=== PATIENT | female | born 1980 | race Caucasian/White ===

== ENCOUNTER 2016-11-16 05:17 | Observation (INO) | payer MEDICAID ==
[2016-11-16] MEDS ORDERED: LR 1,000 ML IV ONE ×2 (05:30→06:42)
[2016-11-16] MEDS ORDERED: PHENAZOPYRIDINE HCL 200 MG TAB PO ONE (05:30)
[2016-11-16] MEDS ORDERED: ceFAZolin 2 GM/DEXTROSE 100 ML IV ONE (05:30)
[2016-11-16] MEDS ORDERED: LIDOCAINE 1% 2 ML INJ ONE (06:18)
[2016-11-16] MEDS ORDERED: LIDOCAINE 1% 5 ML SDV ID PRN (06:42)
[2016-11-16] MEDS ORDERED: fentaNYL 100 MCG/2 ML INJ ONE ×4 (07:04→09:26)
[2016-11-16] MEDS ORDERED: PROPOFOL 200 MG/20 ML VIAL ONE ×2 (07:04)
[2016-11-16] MEDS ORDERED: ROCURONIUM 100 MG/10 ML VIAL ONE (07:08)
[2016-11-16] MEDS ORDERED: LIDOCAINE 2% 100 MG/5 ML SYR ONE (07:08)
[2016-11-16] MEDS ORDERED: MIDAZOLAM 2 MG/2 ML VIAL ONE (07:10)
[2016-11-16] MEDS ORDERED: BUPIVACAINE/EPI 0.5% 30 ML SDV ONE (07:24)
[2016-11-16] MEDS ORDERED: ONDANSETRON 4 MG/2 ML VIAL ONE (08:15)
[2016-11-16] MEDS ORDERED: DEXAMETHASONE 4 MG/ML VIAL ONE (08:15)
[2016-11-16] MEDS ORDERED: SUGAMMADEX SODIUM 200 MG/2 ML VIAL IVP ONE (09:05)
[2016-11-16] MEDS ORDERED: ALPRAZolam 0.25 MG TAB PO PRN ×2 (09:12→12:26)
[2016-11-16] MEDS ORDERED: HYDROCODONE/APAP 5/325 TAB PO PRN (09:13)
[2016-11-16] MEDS ORDERED: ZOLPIDEM TARTRATE 5 MG TAB PO PRN (09:13)
[2016-11-16] MEDS ORDERED: OXYCODONE/APAP 5/325 TAB PO PRN (09:13)
[2016-11-16] MEDS ORDERED: KETOROLAC 30 MG/1 ML SDV IVP ONE (09:13)
[2016-11-16] MEDS ORDERED: ONDANSETRON 4 MG/2 ML VIAL IVP PRN (09:13)
--- NOTE | 2016-11-16 09:20 | POSTOPPROG ---
Post Op Note Date of Operation: 11/16/16 Surgeon: Ulises Rivera Premium Auditor: Lashay Larse Anesthesia: GET(General Endotracheal) Pre-op Diagnosis: Dysmenorrhea, pelvic pain Post-op Diagnosis: Same + endometriosis Procedure: Robotic hyst/LSO, bilat ureterolysis, US lig colpopexy, excise endo, cysto Findings: endo, both ureters function at end of case Inf/Abcess present in the surg proc area at time of surgery?: No EBL: Minimal Complications: None Specimen(s): Uterus, bilat tubes, left ovary, peritoneum with endo
[2016-11-16] MEDS ORDERED: HYDROmorphONE/DILAUDID 1 MG/ML SYR ONE (09:26)
[2016-11-16] MEDS ORDERED: KETOROLAC 15 MG/1 ML SDV ONE (09:26)
[2016-11-16] MEDS ORDERED: LR 1,000 ML IV SCH (09:30)
[2016-11-16] MEDS ORDERED: DIAZEPAM 10 MG/2 ML SYR ONE (10:01)
--- NOTE | 2016-11-16 10:13 | GOP ---
[f rep st] OPERATIVE REPORT DATE OF OPERATION: 11/16/2016 SURGEON: Ulises Rivera MD SENIOR TELECOMMUNICATIONS TECHNICIAN: Lashay Lares CFA ANESTHESIA: General. PREOPERATIVE DIAGNOSIS: 1. Dysmenorrhea. 2. Dyspareunia. 3. Pelvic pain. 4. Uterine prolapse. POSTOPERATIVE DIAGNOSIS: 1. Dysmenorrhea. 2. Dyspareunia. 3. Pelvic pain. 4. Uterine prolapse. 5. Endometriosis. PROCEDURE PERFORMED: 1. Robotic-assisted total laparoscopic hysterectomy, left salpingo-oophorectomy , right salpingectomy. 2. Bilateral ureterolysis. 3. Excision of endometriosis. 4. Bilateral uterosacral ligament colpopexy. 5. Cystoscopy. FINDINGS: SPECIMENS: Uterus, bilateral tubes, left ovary, and peritoneum with endometriosis. ESTIMATED BLOOD LOSS: Scant. DESCRIPTION OF PROCEDURE: The patient was taken to the operating room, where anesthesia was administered and found to be adequate. She was placed in the lithotomy position and prepared and draped in normal sterile fashion. A [employer] uterine manipulator was placed into the endometrial cavity and sutured to the cervix. A 1 cm infraumbilical incision was made with a scalpel. The Veress needle with a CO2 gas lung was advanced into the peritoneal cavity. The abdomen was then insufflated with carbon dioxide gas. The 12 mm trocar, followed by the laparoscope, were then inserted. The upper abdomen was unremarkable. There was no endometriosis seen on either diaphragm, stomach or liver. Two lateral ports were placed on the right and 1 on the left under direct visualization. She then was placed in Trendelenburg position, and the da Za robot docked on the left side. The instruments were brought into the abdominal cavity under direct visualization. She was found to have endometriosis, mostly in both ovarian fossas overlying both ureters. The left round ligament was divided. The anterior leaf of the broad ligament was incised to the bifurcation of left common iliac vessels. A window was created in the medial leaf to skeletonize the infundibulopelvic vessels on the left. They were then cauterized and transected. The anterior leaf of the broad ligament was then incised over the left uterine vessels and across the cervix. The bladder was gently dissected off the cervix and upper vagina. The left uterine vasculature was then cauterized and transected. The right fallopian tube was along the mesosalpinx. The utero- ovarian ligament, followed by the round ligament, were then cauterized and transected. The anterior leaf of the broad ligament was then incised on the right, and the bladder further dissected off. The entire peritoneum in both ovarian fossas was then completely excised. This required a bilateral ureterolysis to safely remove the endometriosis without injuring the ureters. The peritoneum near the pelvic brim was incised. The ureter was gently dissected free. The dissection was carried distally all the way down to the bladder to lateralize the ureter off the peritoneum and overlying endometriosis. Once this was accomplished, the peritoneum endometriosis was completely excised. The exact same procedure was performed on the patient's right side. A circumferential colpotomy incision was then made with the hot mary beth. All specimens were removed through the vagina. The vaginal cuff was closed with a running suture of 0 V-Loc 180. A bilateral uterosacral ligament colpopexy was performed by attaching the lateral aspects of the vaginal cuff to the ipsilateral uterosacral ligaments near their insertion into the coccygeal- sacrospinous ligament complexes. The pelvis was then irrigated with sterile saline and hemostasis was present. The robot was then undocked. The fascia was closed with 0 Vicryl, skin with 4-0 Monocryl and surgical adhesive. Cystoscopy was then performed. Both ureters had vigorous jets of urine. There was no evidence of bladder nor urethral injury seen. No obvious pathology was seen. Anesthesia was reversed. The patient was taken to the PACU awake, in stable condition. COMPLICATIONS: None. DISPOSITION: Patient stable to PACU. /[id number]/MODL MTDD
[2016-11-16] MEDS ORDERED: DIAZEPAM 10 MG/2 ML SYR IVP ONE (10:30)
[2016-11-16] MEDS: KETOROLAC 30 MG/1 ML SDV IVP PRN ×2 (15:31→21:35)
[2016-11-16] MEDS: HYDROmorphONE/DILAUDID 2 MG TAB PO PRN ×2 (18:46→22:58)
[2016-11-16 20:11] VITALS: RESP 16
[2016-11-16] MEDS: NICOTINE 21 MG/24 HR PATCH TD SCH (20:30)
[2016-11-17] MEDS: KETOROLAC 30 MG/1 ML SDV IVP PRN ×2 (03:33→09:39)
[2016-11-17] MEDS: HYDROmorphONE/DILAUDID 2 MG TAB PO PRN ×3 (03:34→11:42)
[2016-11-17 04:05] LABS: HEMATOCRIT 34.9 % (38.0-47.0); HEMOGLOBIN 12.2 g/dL (12.6-16.3)
[2016-11-17] MEDS ORDERED: PANTOPRAZOLE SODIUM 40 MG TAB PO SCH (09:00)
[2016-11-17] MEDS ORDERED: NON-FORMULARY NEW DRUG (Omeprazole [Prilosec 20 Mg] 20 MG) PO SCH (09:00)
[2016-11-17 09:27] VITALS: BP 104/79; PULSE 67; TEMP 97.2; O2SAT 95
[2016-11-17] MEDS: NICOTINE 21 MG/24 HR PATCH TD SCH (09:29)
== END 2016-11-17 12:45 | disposition home or self-care (01) ==
LOC: F3E 05:17 → FOB 11:00
PROVIDERS: ADMIT Obstetrics & Gynecology; ATTEND Obstetrics & Gynecology
PROC: 0UT7FZZ Resection of Bilateral Fallopian Tubes, Via Natural or Artificial Opening With Percutaneous Endoscopic Assistance (ICD-10-PCS; principal; 2016-11-16 07:15)
PROC: 0UT1FZZ Resection of Left Ovary, Via Natural or Artificial Opening With Percutaneous Endoscopic Assistance (ICD-10-PCS; principal; 2016-11-16 07:15)
PROC: 8E0W8CZ Robotic Assisted Procedure of Trunk Region, Via Natural or Artificial Opening Endoscopic (ICD-10-PCS; principal; 2016-11-16 07:15)
PROC: 0UT9FZZ Resection of Uterus, Via Natural or Artificial Opening With Percutaneous Endoscopic Assistance (ICD-10-PCS; principal; 2016-11-16 07:15)
DX: N80.3 Endometriosis of pelvic peritoneum (principal); N94.6 Dysmenorrhea, unspecified; N81.2 Incomplete uterovaginal prolapse
CPT/HCPCS: 58571; 58662; G0378; J0690; J1100; J1170; J1885; J2001; J2250; J2405; J2704; J3010